=== PATIENT | male | born 1950 | race Caucasian/White ===

== ENCOUNTER 2017-08-06 08:21 | Emergency (ER) | payer OTHER, MEDICARE ==
[~2017-08-06] VITALS: Ht 177.8 cm; Wt 106.4 kg
[~2017-08-06 08:21] MED LIST: ATOR40TA69 PO; CHOL10008 PO; DULO30CA PO; HYDR25TA4 PO; LEVO88TA28 PO; LISI-571 PO; METF500T4 PO; PANT40TA3 PO
[2017-08-06 08:29] VITALS: BP 162/92; PULSE 53; RESP 16; O2SAT 98
--- NOTE | 2017-08-06 09:01 | ED.REPORT ---
HPI-Dyspnea / Wheezing Date of Service Aug 06, 2017 ED Provider: Kevan Wong Patient is a 66 year old male with a hx of asthma and DM who presents to the ED complaining of progressively worsening SOB onset a few months ago. Associated symptoms include fatigue, nausea, cold sweats, and cough. Pt also reports sometimes feeling faint with exertion, though this is not consistent. He denies syncope. He occasionally has chest pain which he says is minor and not similar to his prior NC. He denies vomiting, diarrhea, constipation, abdominal pain, ankle swelling, or any other symptoms. He was prescribed an inhaler at the onset of his symptoms by his PCP with little relief. Nursing Notes Stated Complaint: SOB Chief Complaint: Respiratory Complaints Nursing Notes Reviewed: Yes Allergies: Coded Allergies: nortriptyline (Unverified Allergy, Unknown, Dizziness, 10/03/14) Scheduled Atorvastatin Calcium (Atorvastatin Calcium) 40 Mg Tablet 40 MG PO HS Cholecalciferol (Vitamin D3) (Vitamin D3) 1,000 Unit Tab.chew 1,000 UNIT PO DAILY Duloxetine (Cymbalta) 30 Mg Capsule.dr 60 MG PO MORNING Duloxetine (Cymbalta) 30 Mg Capsule.dr 30 MG PO QPM Hydrochlorothiazide (Hydrochlorothiazide) 25 Mg Tablet 25 MG PO DAILY Levothyroxine (Levoxyl) 88 Mcg Tablet 88 MCG PO DAILY Lisinopril (Lisinopril) 5 Mg Tablet 5 MG PO DAILY Metformin (Metformin) 500 Mg Tablet 500 MG PO BIDWM Pantoprazole DR (Pantoprazole DR) 40 Mg Tablet.dr 40 MG PO DAILY General Time Seen by MD: 09:14 Chief Complaint Shortness of breath Hx Obtained From: Patient Arrived By: Walk-in Sudden in Onset?: No Onset Occurred: More than a week ago... (2 months) Symptom Duration: Since onset Severity: Current: No pain currently Severity: Maximum: No pain Recent Healthcare: Recent doctor visit Past Medical History Past Medical History Bradycardia Sleep apnea Reports: Asthma, GERD, Hyperlipidemia, Hypertension Reports: Depression, Thyroid disease Past Surgical History Cervical fusion in 1999 Cardiac stent attempted placement Lower back Reports: Cataract surgery Smoking History Former Smoker Social History Alcohol Use: 1-3 per day Other Social History: Ambulatory Status Independent Review of Systems Review of Systems Note: +cold sweats Constitutional: Reports: Fatigue Respiratory: Reports: Non-productive cough, Shortness of breath Cardiovascular: Denies: Chest pain, Edema Musculoskeletal: Denies: Joint swelling Complete sys rev & neg: except as marked. GI: Reports: Nausea, Denies: Abdominal pain, Constipation, Diarrhea, Vomiting Neurologic: Reports: Lightheaded Physical Exam Initial Vital Signs Vital Signs (First) Date Time Temp Pulse Resp B/P Pulse Ox O2 Delivery O2 Flow Rate FiO2 08/06/17 08:29 37.1 53 16 162/92 98 Room Air Initial VS: Reviewed, Vital signs abnormal Head / Eyes: Atraumatic, Normocephalic Skin: Warm, Dry Neurologic: Alert, Oriented, Nonfocal Psychiatric: Mood/affect normal, Behavior normal, Normal thought content General/Constitutional: Awake, Alert Neck: No JVD Respiratory / Chest: Atraumatic, Breath sounds NL, Breath sounds = bilat Cardiovascular: Heart sounds NL Heart Rate / Rhythm: Positive: Bradycardia Lower Extremity / Pelvis / MS: No edema Interpretation & Diagnostics Lab Results Interpretation Result Diagram: 08/06/17 0855 08/06/17 0855 Test 08/06/17 08:55 White Blood Count 7.2th/mm3 (3.8-10.1) Red Blood Count 5.24mil/mm3 (4.40-5.80) Hemoglobin 14.7g/dL (13.8-17.2) Hematocrit 43.5% (41.0-50.0) Mean Corpuscular Volume 83.0fL (81-100) Mean Corpuscular Hemoglobin 28.1pg (27.0-35.0) Mean Corpuscular Hemoglobin Concent 33.8% (32.0-37.0) Red Cell Distribution Width 14.7% (12.3-15.4) Platelet Count 189bil/L (150-400) Neutrophils (%) (Auto) 60.3% (40-74) Lymphocytes (%) (Auto) 23.8% (14-46) Monocytes (%) (Auto) 10.5% (4-12) Eosinophils (%) (Auto) 4.7% (0-5) Basophils (%) (Auto) 0.4% (0-3) Prothrombin Time 9.9sec (8.1-12.5) Prothromb Time International Ratio 0.93ratio Sodium Level 138mEq/L (134-144) Potassium Level 4.7mEq/L (3.5-5.2) Chloride Level 100mEq/L (97-108) Carbon Dioxide Level 24mmol/L (18-29) Blood Urea Nitrogen 15mg/dL (8-27) Creatinine 0.73mg/dL (0.76-1.27) Estimat Glomerular Filtration Rate 114mL/min (>59) Glucose Level 135mg/dL (60-99) Calcium Level 9.7mg/dL (8.5-10.1) Magnesium Level 1.7mg/dL (1.6-2.6) Total Bilirubin 0.4mg/dL (0.0-1.2) Aspartate Amino Transf (AST/SGOT) 48U/L (0-50) Alanine Aminotransferase (ALT/SGPT) 62U/L (0-44) Alkaline Phosphatase 120U/L (25-160) Troponin T 0.010ug/L (0.0-0.011) Pro-B-Type Natriuretic Peptide 22.31pg/mL (0-376) Total Protein 7.5g/dL (6.4-8.4) Albumin 4.2g/dL (3.4-5.0) Hold Pinzon Top Tube Received (Received) ECG Interpretation ECG Interpretation: Sinus bradycardia with a rate of 48 Time: 08:50 Interpreted by: ED physician X-Ray Chest Interpretation Chest Xray Interpretation: IMPRESSION: No acute cardiopulmonary disease process. Dictated by: Sandra Alvarado MD, PhD on 08/06/2017 at 8:13 Approved by: Sandra Alvarado MD, PhD on 08/06/2017 at 8:14 View: Portable, 1 view Interpretation / Wet Read by: Interpret - Radiologist Re-Eval/Medical Decision Med Decision/Clinical Course Patient presents with subacute worsening dyspnea and lightheadedness. He is occasionally having chest pains though he states these are not similar to his prior NC in 2014. His workup in the ER is reassuring with the exception of sinus bradycardia. His heart rate went as low as the mid 40s and when asked he feels slightly more lightheaded with this. He is offered hospitalization and admission for cardiac stress testing however he declines in lieu of going home. He states his chest pains have been minimal and being that they are dissimilar from prior anginal episodes he wishes to go home. Close cardiology follow-up is recommended and cardiology is contacted who will try to secure close outpatient follow-up. Discussion was had regarding signs and symptoms of which the patient should return to the ER. Re-Evaluation/Progress #1: Time of Eval: 09:58 )( Re-Eval Resp / Chest: Breath sounds normal Re-Evaluation/Progress Note: Rechecked pt. Pt reports he feels more dizzy while sitting when his HR drops. Re-Evaluation/Progress #2: Time of Eval: 10:15 )( Re-Eval Resp / Chest: Breath sounds normal Re-Evaluation/Progress Note: Rechecked pt. Offered admission and in-patient stress test. Pt declines. With further investigation, pt reports he has been having chest pains but states that they are minumal and is not concerned. Discussed plan for discharge. Patient understands and agrees with plan. All questions addressed at this time. Consultation : Referral / Consult Name: Chauncey Jacobs MD Consulted With: Cardiology Call Returned at: 10:09 Associate Marketing Manager: Will see in office, Agrees with eval, Agrees with plan Note: Discussed pt's case. Reviewed prior charting and cath report. Pt is safe to go home and he will see the pt in close follow up in clinic. Counseled Regarding: Diagnosis, Lab results, Need for follow-up, When/why to return to ED Discharge & Departure Impression: Primary Impression: Sinus bradycardia Disposition: Home Discharge Condition All VS Reviewed: Yes Condition: Stable Patient Instructions: Angina (ED) Additional Instructions: Your workup in the ER is reassuring. You should follow-up with cardiology for further testing which may include a stress test or a pacemaker. Begin taking aspirin 81 mg every other day. Return to the ER if you develop worsening chest pain, shortness of breath, more intense feelings of dizziness or episodes of passing out or other concerns Referrals: Brad De Santiago MD (PCP) Scribe Attestation Portions of this note were transcribed by David Martinez. I, Dr. Wong personally performed the history, physical exam and medical decision-making; I reviewed and confirmed the accuracy of the information in the transcribed note. Signed by: Arslan Andersen, 08/06/17 copies to: Brad De Santiago MD, Timothy S DO Aug 06, 2017 09:01 DAVID MARTINEZ Aug 06, 2017 09:11
[2017-08-06 09:14] VITALS: BP 152/89; PULSE 49; RESP 17; O2SAT 98
--- NOTE | 2017-08-06 09:16 | DRSVH ---
PROCEDURE: X-RAY CHEST ONE VIEW, PORTABLE ([id number]) INDICATIONS: SHORTNESS OF BREATH TECHNIQUE: One view of the chest was acquired. COMPARISON: [facility], CR, XR CHEST 1VW (PORTABLE), 04/06/2016, 22:18. FINDINGS: Surgical changes and devices: None. Lungs and pleura: No pleural effusions or pneumothorax. Lungs are clear. Mediastinum: Mediastinal contours appear normal. Heart size is normal. Bones and chest wall: No suspicious bony lesions. Overlying soft tissues appear unremarkable. IMPRESSION: No acute cardiopulmonary disease process. Dictated by: Sandra Alvarado MD, PhD on 08/06/2017 at 8:13 Approved by: Sandra Alvarado MD, PhD on 08/06/2017 at 8:14
[2017-08-06 09:17] LABS: BASOPHILS % (AUTO) 0.4 % (0-3); EOSINOPHILS % (AUTO) 4.7 % (0-5); MONOCYTES % (AUTO) 10.5 % (4-12); Mean Corpuscular Hemoglobin 28.1 pg (27.0-35.0); NEUTROPHILS % (AUTO) 60.3 % (40-74); Platelet Count 189 bil/L (150-400)
[2017-08-06 09:32] LABS: INR 0.93 ratio
[2017-08-06 09:40] LABS: TROPONIN T 0.01 ug/L (0.0-0.011)
[2017-08-06 09:51] LABS: Magnesium 1.7 mg/dL (1.6-2.6)
[2017-08-06 09:53] VITALS: BP 145/74; PULSE 52; RESP 19; O2SAT 96
[2017-08-06 09:54] VITALS: BP 148/86; PULSE 62; RESP 20; O2SAT 97
[2017-08-06 10:38] VITALS: BP 145/74; PULSE 51; RESP 15; O2SAT 98
== END 2017-08-06 10:39 | disposition home or self-care (01) ==
LOC: SED 08:21
DX: R00.1 Bradycardia, unspecified (principal); I10 Essential (primary) hypertension; K21.9 Gastro-esophageal reflux disease without esophagitis; E78.5 Hyperlipidemia, unspecified; E11.9 Type 2 diabetes mellitus without complications; Z87.891 Personal history of nicotine dependence; Z79.84 Long term (current) use of oral hypoglycemic drugs; Z88.8 Allergy status to other drugs, medicaments and biological substances